=== PATIENT | male | born 1990 | race Caucasian/White ===

== ENCOUNTER 2017-03-02 17:40 | Emergency (ER) | payer OTHER | END 2017-03-02 18:20 | disposition home or self-care (01) | DX: S01.01XA Laceration without foreign body of scalp, initial encounter (principal); W22.09XA Striking against other stationary object, initial encounter; Y99.0 Civilian activity done for income or pay ==

== ENCOUNTER 2017-11-26 01:17 | Emergency (ER) | payer OTHER ==
[2017-11-26 01:27] VITALS: BP 149/84
--- NOTE | 2017-11-26 01:33 | ED Physician Documentation ---
History of Present Illness - Stated complaint Stated Complaint: ELECTRIC SHOCK - Chief complaint Chief Complaint: Trauma Ext - History obtained from History obtained from: Patient - History of Present Illness Timing: Prior to arrival - Additonal information Additional information: Patient is a 27 year old male with no significant past medical history who is presenting to the emergency department after being shocked. 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 patient states that he felt a little jittery so the base had him come in for evaluation. Upon initial evaluation in the emergency department patient was feeling better. patient denied any syncope. Review of Systems Constitutional: denies: Myalgias Eyes: denies: Decreased vision, Photophobia Ears: reports: Reviewed and negative Nose: reports: Reviewed and negative Throat: reports: Reviewed and negative Cardiac: denies: Chest pain / pressure, Palpitations Respiratory: denies: Dyspnea, Cough GI: denies: Nausea, Vomiting Skin: denies: Rash, Lesions, Abrasion (s) Musculoskeletal: denies: Neck pain, Back pain, Extremity pain, Joint pain Neurologic: denies: Syncope, Confused, Altered mental status, Headache, Head injury, LOC Immunocompromised: denies: Immunocompromised PD PAST MEDICAL HISTORY - Past Medical History Neuro: None - Past Surgical History Past Surgical History: No - Present Medications Home Medications: Ambulatory Orders Medication Instructions Recorded Confirmed No Known Home Medications [No 03/02/17 03/02/17 Known Home Medications] - Allergies Allergies/Adverse Reactions: Allergies Allergy/AdvReac Type Severity Reaction Status Date / Time No Known Drug Allergies Allergy Verified 03/02/17 17:45 - Social History Does the pt smoke?: No Smoking Status: Never smoker - Immunizations Immunizations are current?: Yes PD ED PE NORMAL - Vitals Vital signs reviewed: Yes - General General: Alert and oriented X 3, No acute distress, Well developed/nourished - HEENT HEENT: Atraumatic, PERRL, Moist mucous membranes - Cardiac Cardiac: RRR, No murmur - Respiratory Respiratory: No respiratory distress - Abdomen Abdomen: Soft, Non tender, Non distended - Derm Derm: Normal color, Warm and dry, No rash - Extremities Extremities: No deformity, No edema - Neuro Neuro: Alert and oriented X 3, No motor deficit, No sensory deficit, Normal speech Eye Opening: Spontaneous Motor: Obeys Commands Verbal: Oriented GCS Score: 15 Results - Vitals Vitals: Vital Signs - 24 hr 11/26/17 01:20 Temperature 36.4 C L Heart Rate 50 L Respiratory 18 Rate Blood Pressure 149/84 H O2 Saturation 98 Oxygen O2 Source Room air - EKG (time done) 0124 Rate: Rate (enter#) (51) Rhythm: Sinus bradycardia [place]: Normal Intervals: Normal CT QRS: Normal Ischemia: ST elevation c/w repol Compare to prior EKG: Old EKG unavailable Computer interpretation: Agree with computer PD MEDICAL DECISION MAKING - ED course Complexity details: reviewed old records, reviewed results, re-evaluated patient , considered differential, d/w patient ED course: Patient was seen and examined at bedside. patient was asymptomatic. ekg was performed and within normal limits. Patient required no further monitoring and was stable for discharge with outpatient follow up. Departure - Departure Disposition: 01 Home, Self Care Clinical Impression: Electric shock Condition: Good Instructions: Shock Electrical First Aid Follow-Up: primary,care provider [Other] - Within 3 Days Comments: Your ekg was within normal limits. there were no abnormalities. You might be sore over the next couple of days. You should follow up with your doctor if your symptoms last for more than the next few days. You may return to the emergency department at any time for new, worsening or uncontrollable symptoms. Forms: Activity restrictions
== END 2017-11-26 01:36 | disposition home or self-care (01) ==
LOC: ED 01:17
DX: T75.4XXA Electrocution, initial encounter (principal); W86.8XXA Exposure to other electric current, initial encounter; Y93.89 Activity, other specified; Y92.138 Other place on military base as the place of occurrence of the external cause; Y99.0 Civilian activity done for income or pay
CPT/HCPCS: 93005; 99283

== ENCOUNTER 2018-05-26 14:38 | Outpatient (CLI) | payer OTHER ==
--- NOTE | 2018-05-27 07:25 | MRI Report ---
Procedure Date: 05/26/2018 Accession Number: [id number] / [id number] Procedure: MRI - Shoulder RT W/O CPT Code: FULL RESULT: EXAM: RIGHT SHOULDER MRI WITHOUT CONTRAST EXAM DATE: 05/26/2018 02:51 PM. CLINICAL HISTORY: PAIN IN RIGHT SHOULDER. COMPARISON: None. TECHNIQUE: Multiplanar, multisequence T1-weighted and fluid-sensitive sequences of the shoulder without contrast. Other: None. FINDINGS: Rotator cuff: Mild thickening and patchy increased T2 signal involving distal fibers of the supraspinatus and infraspinatus as well as upper subscapularis. Small area of low-grade distal bursal surface tear at the junction of the supraspinatus and infraspinatus approximately 7 x 6 mm. 2 mm focus of low grade intrasubstance insertional tear of the subscapularis. No evidence of a high-grade or full thickness rotator cuff tear. No rotator cuff muscle atrophy or fatty replacement. Biceps tendon: Intact demonstrating normal course, signal and morphology. Labrum: Linear high signal consistent with tear of the posterior labrum. Possible extension to the inferior labrum. Otherwise intact. Bones and articular surfaces: No significant articular cartilage abnormalities are seen. The acromioclavicular joint: Mild degenerative change. Type II acromion. IMPRESSION: 1. Mild supraspinatus, infraspinatus and subscapularis tendinosis. 2. Low-grade distal bursal surface tear at the junction of the supraspinatus and infraspinatus. 3. Tiny low-grade intrasubstance insertional tear of the subscapularis. 4. Tear along the posterior labrum. RADIA MUSCULOSKELETAL RADIOLOGY SECTION
== END 2018-05-26 14:39 | disposition home or self-care (01) ==
LOC: DI 14:38
PROVIDERS: ATTEND General Practice
DX: M75.101 Unspecified rotator cuff tear or rupture of right shoulder, not specified as traumatic (principal); S43.491A Other sprain of right shoulder joint, initial encounter